=== PATIENT | male | born 1990 | race Caucasian/White ===

== ENCOUNTER 2017-04-02 02:54 | Emergency (ER) | payer BC ==
[2017-04-02 03:02] VITALS: RESP 18
[2017-04-02] MEDS ORDERED: ACETAMINOPHEN 500 MG TAB PO ONE (03:13)
--- NOTE | 2017-04-02 03:30 | EDPHY ---
H & P Stated Complaint: Fever, Cough, Chills. Time Seen by Provider: 04/02/17 03:20 HPI/ROS: Chief Complaint: Fever, chills, cough HPI: 26-year-old male whose had 1 day of fevers, chills, cough, body aches, general malaise. Patient states that he is visiting from [place]. Got off a plane yesterday. He has been taking some ibuprofen occasionally. No nausea or vomiting or diarrhea. No chest pain. Mild shortness of breath. Cough is nonproductive. Mild headache. No neck pain or stiffness. He is not any other medical problems. ROS: 10 point Review of Systems is negative except as noted in the HPI. PMH: Denies Social History: No smoking, occasional alcohol, no recreational drug use Family History: non-contributory Physical Exam: Gen: Awake, Alert, No Distress HEENT: Nose: no rhinorrhea Eyes: PERRLA, EOMI Mouth: Moist mucosa Neck: Supple, no JVD Chest: nontender, lungs clear to auscultation Heart: S1, S2 normal, no murmur Abd: Soft, non-tender, no guarding Back: no CVA tenderness, no midline tenderness Ext: no edema, non-tender Skin: no rash Neuro: CN II-XII intact, Sensation grossly intact, Strength 5/5 in bilateral upper and lower extremities - Personal History Current Tetanus/Diphtheria Vaccine: Yes Current Tetanus Diphtheria and Acellular Pertussis (TDAP): Yes - Medical/Surgical History Hx Asthma: No Hx Chronic Respiratory Disease: No Hx Diabetes: No Hx Cardiac Disease: No Hx Renal Disease: No Hx Cirrhosis: No Hx Alcoholism: No Hx HIV/AIDS: No Hx Splenectomy or Spleen Trauma: No Other PMH: Denies. - Social History Smoking Status: Never smoked Constitutional: Initial Vital Signs Temperature (C) 39.4 C H 04/02/17 02:58 Heart Rate 126 H 04/02/17 02:58 Respiratory Rate 18 04/02/17 02:58 Blood Pressure 134/97 H 04/02/17 02:58 O2 Sat (%) 90 L 04/02/17 02:58 O2 Delivery Mode Room Air Allergies/Adverse Reactions: No Known Allergies Allergy (Unverified 04/02/17 03:01) Home Medications: Medication Instructions Recorded NK [No Known Home Meds] 04/02/17 Medical Decision Making ED Course/Re-evaluation: 26-year-old male with flu-like symptoms. Fevers down after Tylenol. He has not have the underlying medical problems. Oxygenation is appropriate. Will discharge with supportive therapy, follow up with physician when he returns home. - Data Points Medications Given: Discontinued Medications Acetaminophen (Tylenol) 1,000 mg PO EDNOW ONE Stop: 04/02/17 03:14 Last Admin: 04/02/17 03:16 Dose: 1,000 mg Departure - Departure Disposition: Home, Routine, Self-Care Clinical Impression: Viral syndrome Condition: Good Instructions: Influenza (ED) Additional Instructions: Alternate acetaminophen (1000 mg) with ibuprofen (400 mg) every 4 hours as needed for fevers, chills, aches or pain. Drink plenty of fluids. Return to the emergency department for increasing cough, shortness of breath, uncontrolled nausea or vomiting, uncontrolled fevers, or any other concerns. Referrals: NONE *PRIMARY CARE P,. [Primary Care Provider] - As per Instructions
[2017-04-02 04:12] VITALS: BP 145/76; PULSE 99; TEMP 99.7; O2SAT 93
== END 2017-04-02 04:28 | disposition home or self-care (01) ==
DX: B34.9 Viral infection, unspecified (principal)